=== PATIENT | female | born 1990 | race Caucasian/White ===

== ENCOUNTER 2016-12-18 13:15 | Emergency (ER) | payer MEDICAID ==
[~2016-12-18] VITALS: Ht 154.9 cm; Wt 68.0 kg
[2016-12-18] MEDS ORDERED: Morphine Sulfate 2mg/ml Inj IVP ONE (13:45)
[2016-12-18] MEDS ORDERED: Famotidine 20 MG/ 2ML VIAL IVP ONE (13:45)
[2016-12-18 14:08] LABS: BASOPHILS % (AUTO) 0.6 % (0.0-2.0); EOSINOPHILS % (AUTO) 1.3 % (0.0-3.0); LYMPHOCYTES % (AUTO) 21.7 % (20.0-45.0); MEAN CORPUSCULAR HEMOGLOBIN 29.9 PG (27.0-31.0); MEAN CORPUSCULAR HGB CONC 34.3 G/DL (32.0-36.0); MEAN CORPUSCULAR VOLUME 87 FL (80-99); MEAN PLATELET VOLUME 10.6 FL (6.5-10.1); MONOCYTES % (AUTO) 4.8 % (1.0-10.0); NEUTROPHILS % (AUTO) 71.6 % (45.0-75.0); PLATELET COUNT 217 K/UL (150-450); RED BLOOD COUNT 4.61 M/UL (4.20-5.40); RED CELL DISTRIBUTION WIDTH 11.2 % (11.6-14.8); WHITE BLOOD COUNT 12.5 K/UL (4.8-10.8)
[2016-12-18 14:28] LABS: ALANINE AMINOTRANSFERASE 26 U/L (3-33); ALBUMIN/GLOBULIN RATIO 1.2 (1.0-2.7); ANION GAP 14 (5-15); ASPARTATE AMINO TRANSFERASE 21 U/L (5-40); CALCIUM 9.2 mg/dL (8.6-10.2); CARBON DIOXIDE 23 mEQ/L (20-30); CHLORIDE 101 mEQ/L (98-107); CREATININE 0.7 mg/dL (0.5-0.9); GLOMERULAR FILTRATION RATE > 60 mL/min (>60); HEMOLYSIS 5; LIPASE 26 U/L (< 60); POTASSIUM 4.2 mEQ/L (3.4-4.9); SODIUM 138 mEQ/L (135-145); TOTAL PROTEIN 8.3 g/dL (6.6-8.7)
[2016-12-18 14:34] LABS: APPEARANCE,URINE CLEAR; KETONES,URINE NEGATIVE (NEGATIVE); LEUKOCYTE ESTERASE ,URINE 3+ (NEGATIVE); NITRITE,URINE NEGATIVE (NEGATIVE); PH,URINE 6 (4.5-8.0); PROTEIN,URINE 2+ (NEGATIVE); UROBILINOGEN,URINE 4 MG/DL (0.0-1.0)
[2016-12-18] MEDS ORDERED: Dicyclomine HCl 10mg/5ml oral soln ORAL ONE (14:45)
[2016-12-18] MEDS ORDERED: Mylanta II UD 30ml ORAL ONE (14:45)
[2016-12-18] MEDS ORDERED: Lidocaine 2% Visc 15ml soln ORAL ONE (14:45)
[2016-12-18 14:47] LABS: BACTERIA,URINE FEW /HPF; ICTOTEST NEGATIVE; SQUAMOUS EPITHELIAL CELL,UR FEW /LPF (NONE/OCC)
[2016-12-18 16:19] VITALS: BP 113/79
--- NOTE | 2016-12-18 16:33 | Diagnostic Imaging Report ---
Clinical Indication: Upper abdominal pain x2 days Technique: No oral contrast utilized, per emergency room physician request IV administration nonionic contrast. Venous phase spiral acquisition obtained through the abdomen and pelvis. Multiplanar reconstructions were generated. Total dose length product 918 mGycm. CTDIvol(s) 18 mGy. Dose reduction achieved using automated exposure control Comparison: None Findings: Lack of enteric contrast limits assessment of the GI tract. The appendix is normal. There is no evidence of diverticulosis or diverticulitis. The distal esophagus, stomach, duodenum are unremarkable. Proximal jejunal loops are mildly prominent but not frankly dilated. More distal jejunal loops are mildly dilated and fluid-filled. These demonstrate a gradual transition to normal caliber in the lower midabdomen. There is equivocal minimal infiltration of the perienteric fat. Ileal loops are nondilated. There is diastases of the rectus abdominis tendon. No free or loculated intraperitoneal air or fluid. The gallbladder is nondistended. The liver, bile ducts, pancreas, spleen, adrenals, kidneys, ureters are unremarkable. The uterus contains an intrauterine device. No adnexal mass demonstrated. No pelvic mass or adenopathy. The bladder is somewhat distended. There is minimal dependent pulmonary atelectatic changes, lung bases otherwise clear. The bones are unremarkable. Impression: Limit assessment of the GI tract, due to lack of oral contrast administration Fluid-filled mildly dilated mid to distal jejunum, demonstrating gradual transition to normal caliber or collapsed ileum. Suspect findings are on the basis of mild enteritis changes or ileus. However, possibility of partial small bowel obstruction cannot completely ruled out. No other acute abnormality Intrauterine device Diastasis of the rectus abdominis tendon without ray herniation The CT scanner at [facility] is accredited by the [employer] and the scans are performed using protocols designed to limit radiation exposure to as low as reasonably achievable to attain images of sufficient resolution adequate for diagnostic evaluation.
[2016-12-18] MEDS ORDERED: ACETAMINOPHEN-1 EAC1 ORAL (16:45)
[2016-12-18] MEDS ORDERED: Morphine Sulfate 4mg/ml Inj IVP ONE (16:45)
[2016-12-18] MEDS ORDERED: NITROFURANTOIN100 M2 ORAL (16:45)
[2016-12-18 17:17] VITALS: BP 101/54
--- NOTE | 2016-12-18 21:53 | Emergency Room Report ---
History of Present Illness General Chief Complaint: Abdominal Pain Source: Patient Present Illness [facility] The patient is a 26-year-old female presenting for abdominal pain. Pain began 2 days prior. It is described as an 8/10 sharp sensation to the mid upper abdomen. She admits to occasional radiating pain to the mid chest described as a burning. No known provoking or relieving factors. She admits to nausea. She also admits to recent diarrhea. She denies other symptoms including vomiting , fever, chills, rash Allergies: Coded Allergies: No Known Allergies (Unverified , 12/18/16) Patient History Past Medical History: see triage record Pertinent Family History: none Last Menstrual Period: December 01, 2016 Now: No Reviewed Nursing Documentation: PMH: Agreed, PSxH: Agreed Review of Systems All Other Systems: negative except mentioned in HPI Physical Exam Vital Signs Date Time Temp Pulse Resp B/P Pulse Ox O2 Delivery O2 Flow Rate FiO2 12/18/16 13:26 98.2 84 12 119/79 96 Room Air Sp02 EP Interpretation: reviewed, normal General Appearance: no apparent distress, alert, GCS 15, non-toxic Head: normocephalic, atraumatic Eyes: bilateral eye PERRL, bilateral eye normal inspection ENT: hearing grossly normal, normal pharynx, no angioedema, normal voice Neck: full range of motion, supple/symm/no masses Respiratory: chest non-tender, lungs clear, normal breath sounds, speaking full sentences Gastrointestinal: normal bowel sounds, soft, no mass, no guarding, tenderness - epigastric Rectal: deferred Genitourinary: normal inspection, no CVA tenderness Musculoskeletal: back normal, gait/station normal, normal range of motion, non- tender Neurologic: alert, oriented x3, responsive, motor strength/tone normal, sensory intact, speech normal Psychiatric: judgement/insight normal, memory normal, mood/affect normal, no suicidal/homicidal ideation Skin: normal color, no rash, warm/dry, well hydrated Medical Decision Making PA Attestation Dr. Suresh is my supervising physician. Patient management was discussed with my supervising physician Diagnostic Impression: Primary Impression: Urinary tract infection Additional Impression: Abdominal pain Qualified Codes: R10.9 - Unspecified abdominal pain ER Course The patient is a 26-year-old female presenting for abdominal pain Differential diagnoses considered include but not limited to gastritis, pancreatitis, appendicitis, gastroenteritis, , UTI Physical exam: Unremarkable except for tenderness to palpation of the epigastric region Lab work: Significant only for mild leukocytosis and white blood cells in urine The patient is given IV Pepcid and 2 mg of morphine. Pain has persisted. She is then given a GI cocktail with no relief of symptoms. Abdominal pain has continued despite medications given. CT scan is ordered CT scan of abdomen and pelvis shows signs consistent with enteritis. Otherwise unremarkable The patient is discharged home with the ER precautions. She is to follow up with primary doctor. She is given antibiotics for presumed urinary tract infection. Laboratory Tests Test 12/18/16 13:35 White Blood Count 12.5 K/UL (4.8-10.8) H Red Blood Count 4.61 M/UL (4.20-5.40) Hemoglobin 13.8 G/DL (12.0-16.0) Hematocrit 40.3 % (37.0-47.0) Mean Corpuscular Volume 87 FL (80-99) Mean Corpuscular Hemoglobin 29.9 PG (27.0-31.0) Mean Corpuscular Hemoglobin Concent 34.3 G/DL (32.0-36.0) Red Cell Distribution Width 11.2 % (11.6-14.8) L Platelet Count 217 K/UL (150-450) Mean Platelet Volume 10.6 FL (6.5-10.1) H Neutrophils (%) (Auto) 71.6 % (45.0-75.0) Lymphocytes (%) (Auto) 21.7 % (20.0-45.0) Monocytes (%) (Auto) 4.8 % (1.0-10.0) Eosinophils (%) (Auto) 1.3 % (0.0-3.0) Basophils (%) (Auto) 0.6 % (0.0-2.0) Urine Color Ele Urine Appearance Clear Urine pH 6 (4.5-8.0) Urine Specific [place] 1.015 (1.005-1.035) Urine Protein 2+ (NEGATIVE) H Urine Glucose (UA) Negative (NEGATIVE) Urine Ketones Negative (NEGATIVE) Urine Occult Blood 3+ (NEGATIVE) H Urine Nitrite Negative (NEGATIVE) Urine Bilirubin Negative (NEGATIVE) Urine Ictotest Negative Urine Urobilinogen 4 MG/DL (0.0-1.0) H Urine Leukocyte Esterase 3+ (NEGATIVE) H Urine RBC 2-4 /HPF (0 - 2) H Urine WBC 5-10 /HPF (0 - 2) H Urine Squamous Epithelial Cells Few /LPF (NONE/OCC) Urine Bacteria Few /HPF (NONE) Urine HCG, Qualitative Negative Sodium Level 138 mEQ/L (135-145) Potassium Level 4.2 mEQ/L (3.4-4.9) Chloride Level 101 mEQ/L (98-107) Carbon Dioxide Level 23 mEQ/L (20-30) Anion Gap 14 (5-15) Blood Urea Nitrogen 9 mg/dL (7-23) Creatinine 0.7 mg/dL (0.5-0.9) Estimate Glomerular Filtration Rate > 60 mL/min (>60) Glucose Level 103 mg/dL (74-106) Calcium Level 9.2 mg/dL (8.6-10.2) Total Bilirubin 0.8 mg/dL (0.0-1.2) Aspartate Amino Transferase (AST) 21 U/L (5-40) Alanine Aminotransferase (ALT) 26 U/L (3-33) Alkaline Phosphatase 102 U/L (35-104) Total Protein 8.3 g/dL (6.6-8.7) Albumin 4.6 g/dL (3.5-5.2) Globulin 3.7 g/dL Albumin/Globulin Ratio 1.2 (1.0-2.7) Lipase 26 U/L (< 60) Lab Results Impression CBC: Mildly elevated white blood cell count. Otherwise unremarkable CMP unremarkable Urinalysis shows white blood cells with few bacteria Neg CT/MRI/US Diagnostic Results CT/MRI/US Diagnostic Results : Imaging Test Ordered: CT abd/pelvis Impression Signs consistent with enteritis Last Vital Signs Date Time Temp Pulse Resp B/P Pulse Ox O2 Delivery O2 Flow Rate FiO2 12/18/16 17:17 84 20 101/54 99 Room Air 12/18/16 16:19 98.2 Status: improved Disposition: HOME, SELF-CARE Condition: Improved Scripts Acetaminophen With Codeine (T#3) (TYLENOL #3 TAB*) Y Tab 1 TAB ORAL Q6HR Y for For Pain, #10 TAB Prov: TERZIANKAYLENE P.A. 12/18/16 Nitrofurantoin Monohyd/M-Cryst* (MACROBID 100 MG*) 100 Mg Capsule 100 MG ORAL EVERY 12 HOURS, #14 CAP Prov: KAYLENE EDWARDS 12/18/16 Patient Instructions: Abdominal Pain, Adult Additional Instructions: I discussed my findings with the patient. All questions and concerns have been answered. Treatment and medication compliance have been addressed. I advised the patient that they need to follow up with PMD in 3-5 days. Return to ED if symptoms worsen, new symptoms arise, or if needed for any reason. Patient verbalized understanding of discharge instructions. KAYLENE EDWARDS Dec 18, 2016 21:53
== END 2016-12-18 17:17 | disposition home or self-care (01) ==
LOC: EMR 14:25
DX: N39.0 Urinary tract infection, site not specified (principal); R10.9 Unspecified abdominal pain; R11.0 Nausea; R19.7 Diarrhea, unspecified; D72.829 Elevated white blood cell count, unspecified; Z97.5 Presence of (intrauterine) contraceptive device
CPT/HCPCS: 36415; 74177; 80053; 81003; 81025; 83690; 85025; 96374; 96375; 99284; J2270; J2405; Q9967; S0028

== ENCOUNTER 2017-02-06 17:15 | Emergency (ER) | payer MEDICAID ==
[~2017-02-06] VITALS: Ht 154.9 cm; Wt 68.0 kg
[~2017-02-06 17:15] MED LIST: ACETAMINOPHEN-1 EAC1 ORAL; NITROFURANTOIN100 M2 ORAL
[2017-02-06 18:02] LABS: APPEARANCE,URINE CLEAR; KETONES,URINE NEGATIVE (NEGATIVE); LEUKOCYTE ESTERASE ,URINE 2+ (NEGATIVE); NITRITE,URINE NEGATIVE (NEGATIVE); PH,URINE 8 (4.5-8.0); PROTEIN,URINE NEGATIVE (NEGATIVE); UROBILINOGEN,URINE 8 MG/DL (0.0-1.0)
[2017-02-06 18:05] LABS: BACTERIA,URINE FEW /HPF; RBC,URINE 0-2 /HPF (0 - 2); SQUAMOUS EPITHELIAL CELL,UR FEW /LPF (NONE/OCC)
[2017-02-06] MEDS ORDERED: IBUPROFEN600 MG ORAL (19:16)
[2017-02-06] MEDS ORDERED: CEPHALEXIN500 MG ORAL (19:16)
[2017-02-06 19:25] VITALS: BP 126/77
[2017-02-06 19:32] VITALS: BP 123/75
--- NOTE | 2017-02-06 21:33 | Emergency Room Report ---
History of Present Illness General Chief Complaint: Female Urogenital Problems Source: Patient Present Illness [facility] The patient is a 26-year-old female presenting for vaginal discharge and pelvic pain. She states that she developed a white discharge one week prior as well as pain which occurs during intercourse. Pain is an 8/10 dull ache felt in the mid lower abdomen during intercourse. She also admits to a foul order after sex but denies that this is a fishy odor. She states that she has not had any other sexual partners for over 10 years. She does admit to increased urinary frequency but denies other symptoms including dysuria, hematuria, nausea, vomiting, fever, chills, back pain, rash. Patient states that she has an IUD placed Allergies: Coded Allergies: No Known Allergies (Unverified , 12/18/16) Patient History Past Medical History: see triage record Pertinent Family History: none Last Menstrual Period: 01/2017 Reviewed Nursing Documentation: PMH: Agreed, PSxH: Agreed Nursing Documentation-PMH Past Medical History: No History, Except For Review of Systems All Other Systems: negative except mentioned in HPI Physical Exam Vital Signs Date Time Temp Pulse Resp B/P (MAP) Pulse Ox O2 Delivery O2 Flow Rate FiO2 02/06/17 17:31 98.1 65 16 123/75 99 Room Air Sp02 EP Interpretation: reviewed, normal General Appearance: no apparent distress, alert, GCS 15, non-toxic Head: normocephalic, atraumatic Eyes: bilateral eye normal inspection, bilateral eye PERRL ENT: hearing grossly normal, normal pharynx, no angioedema, normal voice Neck: full range of motion, supple/symm/no masses Gastrointestinal: normal bowel sounds, soft, non-distended, no guarding, no rebound, tenderness - suprapubic Rectal: deferred Genitourinary: ext genitalia/vag normal, os closed - strings visible, other - + CMT with friable cervix Musculoskeletal: back normal, gait/station normal, normal range of motion, non- tender Neurologic: alert, oriented x3, responsive, motor strength/tone normal, sensory intact, speech normal Skin: normal color, no rash, warm/dry, well hydrated Medical Decision Making PA Attestation Dr. Schmitz is my supervising physician. Patient management was discussed with my supervising physician Diagnostic Impression: Primary Impression: Pelvic pain Additional Impression: Urinary tract infection Qualified Codes: N39.0 - Urinary tract infection, site not specified ER Course The patient is a 26-year-old female presenting for vaginal discharge and pelvic pain. Differential diagnoses considered but not limited to: Urinary tract infection, BV, STD, PID, among others PE: NAD. Afebrile. Abd is soft. TTP over suprapubic region. Pelvic exam done with tech Lucretia in room. There is a slight white DC. Os is closed. Cervix is significantly tender with light palpation and friable. The patient was advised that with these findings, I am concerned for the patient having an STD which is causing PID. She has become angry and aggressive and declines medication including azithromycin and Rocephin. She was told that this is the standard of care but is refusing. The patient is discharged home with prescription for Keflex but was told that this will likely not be enough to treat the infection. She needs to FU with OB/ [facility] and PMD SHIVA. She was told to return to the emergency department if she changes her mind for treatment or for any reason including increased pain Laboratory Tests Test 02/06/17 17:43 Urine Color Pale yellow Urine Appearance Clear Urine pH 8 (4.5-8.0) Urine Specific [place] 1.010 (1.005-1.035) Urine Protein Negative (NEGATIVE) Urine Glucose (UA) Negative (NEGATIVE) Urine Ketones Negative (NEGATIVE) Urine Occult Blood 1+ (NEGATIVE) H Urine Nitrite Negative (NEGATIVE) Urine Bilirubin Negative (NEGATIVE) Urine Urobilinogen 8 MG/DL (0.0-1.0) H Urine Leukocyte Esterase 2+ (NEGATIVE) H Urine RBC 0-2 /HPF (0 - 2) Urine WBC 2-4 /HPF (0 - 2) Urine Squamous Epithelial Cells Few /LPF (NONE/OCC) Urine Bacteria Few /HPF (NONE) Urine HCG, Qualitative Negative Lab Results Impression 2+ LE with few bacteria Last Vital Signs Date Time Temp Pulse Resp B/P (MAP) Pulse Ox O2 Delivery O2 Flow Rate FiO2 02/06/17 19:32 98.1 16 123/75 99 Room Air 02/06/17 19:25 88 Status: improved Disposition: HOME, SELF-CARE Condition: Improved Scripts Cephalexin* (KEFLEX*) 500 Mg Capsule 500 MG ORAL EVERY 12 HOURS, #14 CAP 0 Refills Prov: KAYLENE EDWARDS P.A. 02/06/17 Ibuprofen* (MOTRIN*) 600 Mg Tablet 600 MG ORAL Q8H Y for For Pain, #30 TAB 0 Refills Prov: KAYLENE EDWARDS 02/06/17 Referrals: LEOPOLDO STARK,REFERRING (PCP) Patient Instructions: Pelvic Pain, Female, Urinary Tract Infection Additional Instructions: I discussed my findings with the patient. All questions and concerns have been answered. Treatment and medication compliance have been addressed. I advised the patient that they need to follow up with primary doctor and [facility] as soon as possible. Return to ED if symptoms worsen, new symptoms arise, or if needed for any reason. Patient verbalized understanding of discharge instructions. KAYLENE EDWARDS Feb 06, 2017 21:33
== END 2017-02-06 19:32 | disposition home or self-care (01) ==
LOC: EMR 17:58
DX: R10.2 Pelvic and perineal pain (principal); N39.0 Urinary tract infection, site not specified; N89.8 Other specified noninflammatory disorders of vagina; N94.10 Unspecified dyspareunia; R35.0 Frequency of micturition
CPT/HCPCS: 81003; 81025; 99284

== ENCOUNTER 2017-06-11 16:21 | Emergency (ER) | payer MEDICAID ==
[~2017-06-11] VITALS: Ht 154.9 cm; Wt 68.0 kg
[~2017-06-11 16:21] MED LIST changes: +CEPHALEXIN500 MG ORAL; +IBUPROFEN600 MG ORAL
--- NOTE | 2017-06-11 17:08 | Emergency Room Report ---
History of Present Illness General Chief Complaint: Pain Present Illness HPI Patient is a 18-year-old female presents today with complaints of pelvic pain that began 2 days ago. She states it is evident in severity and she describes the pain as cramping. No medications and taking for the pain. She states she had spotting in yesterday, which has since resolved. she denies any dysuria but notes urinary frequency. She states that she took a home test which was negative. She has no significant medical problems and denies tobacco , alcohol or drug use. Allergies: Coded Allergies: No Known Allergies (Unverified , 12/18/16) Patient History Reviewed Nursing Documentation: PMH: Agreed, PSxH: Agreed Review of Systems Gastrointestinal: Reports: abdominal pain All Other Systems: negative except mentioned in HPI Physical Exam Vital Signs Date Time Temp Pulse Resp B/P (MAP) Pulse Ox O2 Delivery O2 Flow Rate FiO2 06/11/17 16:31 98.1 75 20 121/77 99 Room Air Sp02 EP Interpretation: reviewed, normal General Appearance: no apparent distress, alert, GCS 15, non-toxic Head: normocephalic, atraumatic Eyes: bilateral eye normal inspection, bilateral eye PERRL ENT: hearing grossly normal, normal pharynx, no angioedema, normal voice Neck: full range of motion, supple/symm/no masses Respiratory: chest non-tender, lungs clear, normal breath sounds, speaking full sentences Cardiovascular #1: regular rate, rhythm, no edema Cardiovascular #2: 2+ carotid (R), 2+ carotid (L), 2+ radial (R), 2+ radial (L) , 2+ dorsalis pedis (R), 2+ dorsalis pedis (L) Gastrointestinal: normal bowel sounds, non tender, soft, non-distended, no guarding, no rebound Rectal: deferred Genitourinary: normal inspection, no CVA tenderness Musculoskeletal: back normal, gait/station normal, normal range of motion, non- tender, calf tenderness Neurologic: alert, oriented x3, responsive, motor strength/tone normal, sensory intact, speech normal Psychiatric: judgement/insight normal, memory normal, mood/affect normal, no suicidal/homicidal ideation Reflexes: 3+ bicep (R), 3+ bicep (L), 3+ tricep (R), 3+ tricep (L), 3+ knee (R) , 3+ knee (L) Skin: normal color, no rash, warm/dry, well hydrated Lymphatic: no adenopathy Medical Decision Making PA Attestation Supervising physician is Dr. Wagner Diagnostic Impression: Primary Impression: Ovarian cyst Additional Impression: Pelvic pain ER Course Patient sent have ovarian cysts. There no evidence of torsion and there. Labs are within normal limits, no leukocytosis. Reevaluation at 2041, he states is improving the medication. Abdomen is soft and nontender. Patient is discharged home with tramadol and instructed to follow up with PCP for referral to OB. The patient understands and is agreeable to plan. Discussed case with Dr. Schmitz who agreed with disposition and plan. Last Vital Signs Date Time Temp Pulse Resp B/P (MAP) Pulse Ox O2 Delivery O2 Flow Rate FiO2 06/11/17 16:31 98.1 75 20 121/77 99 Room Air Status: improved Disposition: HOME, SELF-CARE Condition: Stable Scripts Tramadol Hcl* (ULTRAM*) 50 Mg Tablet 50 MG ORAL Q6H Y for For Pain, #30 TAB 0 Refills Prov: Ele Ann 06/11/17 Ele Ann Jun 11, 2017 17:08
[2017-06-11 17:30] LABS: APPEARANCE,URINE CLEAR; BILIRUBIN, URINE NEGATIVE (NEGATIVE); COLOR,URINE PALE YELLOW; GLUCOSE, URINE (UA) NEGATIVE (NEGATIVE); KETONES,URINE NEGATIVE (NEGATIVE); LEUKOCYTE ESTERASE ,URINE 1+ (NEGATIVE); NITRITE,URINE NEGATIVE (NEGATIVE); PH,URINE 6.5 (4.5-8.0); PROTEIN,URINE 2+ (NEGATIVE); UROBILINOGEN,URINE NORMAL MG/DL (0.0-1.0)
[2017-06-11 17:32] LABS: BASOPHILS % (AUTO) 0.6 % (0.0-2.0); EOSINOPHILS % (AUTO) 2.2 % (0.0-3.0); HEMATOCRIT 37.9 % (37.0-47.0); HEMOGLOBIN 13.2 G/DL (12.0-16.0); LYMPHOCYTES % (AUTO) 35.2 % (20.0-45.0); MEAN CORPUSCULAR VOLUME 87 FL (80-99); PLATELET COUNT 242 K/UL (150-450); RED BLOOD COUNT 4.38 M/UL (4.20-5.40); RED CELL DISTRIBUTION WIDTH 11.7 % (11.6-14.8); WHITE BLOOD COUNT 7.7 K/UL (4.8-10.8)
[2017-06-11 17:39] LABS: ANION GAP 11 mmol/L (5-15); BLOOD UREA NITROGEN 9 mg/dL (7-18); CALCIUM 9.1 MG/DL (8.5-10.1); CARBON DIOXIDE 25 MMOL/L (21-32); CHLORIDE 102 MMOL/L (98-107); CREATININE 0.7 MG/DL (0.55-1.30); POTASSIUM 3.9 MMOL/L (3.5-5.1); SODIUM 138 MMOL/L (136-145)
[2017-06-11 18:05] VITALS: BP 134/75
[2017-06-11] MEDS ORDERED: Acetaminophen 500mg (ES) tab ORAL ONE (20:30)
[2017-06-11] MEDS ORDERED: Ketorolac 30mg Inj IM ONE (20:30)
[2017-06-11] MEDS ORDERED: TRAMADOL HCL50 MG ORAL (20:43)
[2017-06-11 20:50] VITALS: BP 122/77
[2017-06-11 22:04] VITALS: BP 122/77
--- NOTE | 2017-06-12 09:36 | Diagnostic Imaging Report ---
Indication: Pelvic pain and vaginal bleeding, negative urine test Technique: Transabdominal and transvaginal images Comparison: none Findings: Uterus measures 8.4 cm length by 3.4 cm AP endometrium measures 6 cm cystic. No myometrial abnormality. Left ovary measures 2.5 cm length. Right ovary measures 3 cm in length. No adnexal mass demonstrated. No free cul-de-sac fluid. There is a cervical nabothian cyst Impression: Essentially unremarkable exam Incidental finding of cervical nabothian cyst This agrees with the preliminary interpretation provided [facility].
== END 2017-06-11 20:54 | disposition home or self-care (01) ==
LOC: EMR 18:33
DX: N83.209 Unspecified ovarian cyst, unspecified side (principal); R10.2 Pelvic and perineal pain; N88.8 Other specified noninflammatory disorders of cervix uteri
CPT/HCPCS: 36415; 76830; 76856; 80048; 81001; 81025; 85025; 96360; 96372; 99284; J1885; 96361

== ENCOUNTER 2017-06-17 14:03 | Emergency (ER) | payer MEDICAID, OTHER ==
[~2017-06-17] VITALS: Ht 160 cm; Wt 59.0 kg
[~2017-06-17 14:03] MED LIST changes: +TRAMADOL HCL50 MG ORAL
[2017-06-17 14:30] VITALS: BP 126/83
[2017-06-17] MEDS ORDERED: LORazepam 1mg tab ORAL ONE (14:30)
[2017-06-17 15:05] LABS: BASOPHILS % (AUTO) 0.6 % (0.0-2.0); EOSINOPHILS % (AUTO) 3.4 % (0.0-3.0); HEMATOCRIT 38.2 % (37.0-47.0); LYMPHOCYTES % (AUTO) 30.2 % (20.0-45.0); MEAN CORPUSCULAR VOLUME 88 FL (80-99); MONOCYTES % (AUTO) 3.7 % (1.0-10.0); PLATELET COUNT 248 K/UL (150-450); RED BLOOD COUNT 4.34 M/UL (4.20-5.40); RED CELL DISTRIBUTION WIDTH 11.6 % (11.6-14.8); WHITE BLOOD COUNT 8.6 K/UL (4.8-10.8)
[2017-06-17 15:18] LABS: INR 0.9 (0.9-1.1)
[2017-06-17 15:22] LABS: ANION GAP 11 mmol/L (5-15); BLOOD UREA NITROGEN 9 mg/dL (7-18); CARBON DIOXIDE 26 MMOL/L (21-32); CHLORIDE 101 MMOL/L (98-107); CREATININE 0.7 MG/DL (0.55-1.30); POTASSIUM 3.7 MMOL/L (3.5-5.1); SODIUM 138 MMOL/L (136-145)
[2017-06-17 15:27] LABS: ALANINE AMINOTRANSFERASE 36 U/L (12-78); ALBUMIN 4.2 G/DL (3.4-5.0); ALBUMIN/GLOBULIN RATIO 1.1 (1.0-2.7); ALKALINE PHOSPHATASE 115 U/L (46-116); ASPARTATE AMINO TRANSFERASE 18 U/L (15-37); BILIRUBIN,TOTAL 0.7 MG/DL (0.2-1.0)
--- NOTE | 2017-06-17 16:18 | Diagnostic Imaging Report ---
ndication: Chest pain Technique: IV administration nonionic contrast. Spiral acquisitions obtained from the lung bases to the lung apices. Multiplanar and 3-D reconstructions were generated. Total dose length product 863.53 mGycm. CTDIvol(s) 30.37 mGy. Dose reduction achieved using automated exposure control Comparison: none Findings: No intraluminal filling defects or other findings to suggest acute pulmonary embolus are evident. There is adequate opacification of the pulmonary arteries. No thoracic aortic aneurysm or dissection. Normal caliber pulmonary arteries. No right ventricular dilatation. Normal heart size. There is a calcified granuloma at the right lung apex. The lungs and pleural spaces are otherwise clear. No mediastinal or hilar mass or adenopathy. Normal heart size. No pericardial effusion. The included thyroid is unremarkable. No axillary or chest wall mass or adenopathy. Included upper abdominal viscera are unremarkable. The bones are unremarkable Impression: Negative for acute pulmonary embolus or other acute thoracic pathology Old calcified granuloma in the right lung apex The CT scanner at [facility] is accredited by the [employer] and the scans are performed using protocols designed to limit radiation exposure to as low as reasonably achievable to attain images of sufficient resolution adequate for diagnostic evaluation.
--- NOTE | 2017-06-17 16:48 | Diagnostic Imaging Report ---
Indication: Shortness of breath and chest pain Technique: 2 views of the chest Comparison: none. Findings: Lungs and pleural spaces are clear. Heart size is normal. Bones are unremarkable.. Impression: No acute process
--- NOTE | 2017-06-17 16:57 | Emergency Room Report ---
History of Present Illness General Chief Complaint: Chest Pain Present Illness HPI 26 YO Female presents to the ED c/o Intermittent chest pain since last week described as tightness in nature, with associated episodes of dizziness and feeling as though she is going to faint. Patient states she was evaluated for her symptoms last week and was diagnosed with chest wall pain. Patient reports history of blood clots after . Denies personal or familial cardiac history. Patient reports that when she was diagnosed of blood clot in 2013 she had to get herself Lovenox injections times one month. Patient denies pain at this time however she does report feeling short of breath and as though her rib cage is very tight. Patient denies recent URI symptoms, fevers, chills, nausea or vomiting. Denies history of anxiety. She reports her most recent episode was while at work and she got worried and decided to be evaluated at the ER. Denies Palpitations, LOC, AMS, Changes in Vision, Sensation, paresthesias, or a sudden severe headache. Allergies: Coded Allergies: No Known Allergies (Unverified , 12/18/16) Patient History Past Medical History: see triage record Past Surgical History: none Pertinent Family History: none Now: No Reviewed Nursing Documentation: PMH: Agreed, PSxH: Agreed Review of Systems All Other Systems: negative except mentioned in HPI Physical Exam Vital Signs Date Time Temp Pulse Resp B/P (MAP) Pulse Ox O2 Delivery O2 Flow Rate FiO2 06/17/17 14:06 97.3 84 20 130/85 99 Room Air Sp02 EP Interpretation: reviewed, normal General Appearance: no apparent distress, alert, GCS 15, non-toxic Head: normocephalic, atraumatic ENT: hearing grossly normal, normal voice Neck: full range of motion Respiratory: chest non-tender, lungs clear, normal breath sounds, speaking full sentences Cardiovascular #1: regular rate, rhythm Gastrointestinal: non tender, soft Musculoskeletal: back normal, gait/station normal, normal range of motion, non- tender Neurologic: alert, oriented x3, responsive, motor strength/tone normal, sensory intact, normal gait, speech normal, grossly normal Psychiatric: judgement/insight normal Skin: normal color, no rash, warm/dry, well hydrated Medical Decision Making PA Attestation Dr. Porras is my supervising Physician whom patient management has been discussed with. Diagnostic Impression: Primary Impression: Chest wall pain ER Course 26 YO Female presents to the ED c/o Intermittent chest pain since last week described as tightness in nature, with associated episodes of dizziness and feeling as though she is going to faint. Patient states she was evaluated for her symptoms last week and was diagnosed with chest wall pain. Patient reports history of blood clots after . Denies personal or familial cardiac history. Patient reports that when she was diagnosed of blood clot in 2013 she had to get herself Lovenox injections times one month. Patient denies pain at this time however she does report feeling short of breath and as though her rib cage is very tight. Patient denies recent URI symptoms, fevers, chills, nausea or vomiting. Denies history of anxiety. She reports her most recent episode was while at work and she got worried and decided to be evaluated at the ER. Denies Palpitations, LOC, AMS, Changes in Vision, Sensation, paresthesias, or a sudden severe headache. Ddx considered but are not limited to DE, pneumonia, contusion, costochondritis , PE, ACS, Shoulder strain, Chest wall contusion. aortic dissection. Vital signs: are WNL, pt. is afebrile H&PE are most consistent with possible anxiety reaction however will consider PE due to hx of DVT/PE in the past. ORDERS: - EKG: NSR -CBC: Unremarkable -CMP: unremarkable CXR- 2 views: WNL -CTA CHEST: unremarkable no PE. ED INTERVENTIONS: -Ativan 1 mg PO -pt. symptoms have resolved upon re-examination. d/w pt. conservative treatment, and to follow up with a primary care provider. pt given a list of primary care clinics for follow up. d/w pt. to return to the ED with worsening or new symptoms. DISCHARGE: At this time pt. is stable for d/c to home. Will provide printed patient care instructions, and any necessary prescriptions. Care plan and follow up instructions have been discussed with the patient prior to discharge. Labs Test 06/17/17 14:50 White Blood Count 8.6 K/UL (4.8-10.8) Red Blood Count 4.34 M/UL (4.20-5.40) Hemoglobin 13.0 G/DL (12.0-16.0) Hematocrit 38.2 % (37.0-47.0) Mean Corpuscular Volume 88 FL (80-99) Mean Corpuscular Hemoglobin 30.0 PG (27.0-31.0) Mean Corpuscular Hemoglobin Concent 34.1 G/DL (32.0-36.0) Red Cell Distribution Width 11.6 % (11.6-14.8) Platelet Count 248 K/UL (150-450) Mean Platelet Volume 9.2 FL (6.5-10.1) Neutrophils (%) (Auto) 62.0 % (45.0-75.0) Lymphocytes (%) (Auto) 30.2 % (20.0-45.0) Monocytes (%) (Auto) 3.7 % (1.0-10.0) Eosinophils (%) (Auto) 3.4 % (0.0-3.0) Basophils (%) (Auto) 0.6 % (0.0-2.0) Prothrombin Time 9.7 SEC (9.30-11.50) Prothromb Time International Ratio 0.9 (0.9-1.1) Activated Partial Thromboplast Time 27 SEC (23-33) Urine HCG, Qualitative Negative Sodium Level 138 MMOL/L (136-145) Potassium Level 3.7 MMOL/L (3.5-5.1) Chloride Level 101 MMOL/L (98-107) Carbon Dioxide Level 26 MMOL/L (21-32) Anion Gap 11 mmol/L (5-15) Blood Urea Nitrogen 9 mg/dL (7-18) Creatinine 0.7 MG/DL (0.55-1.30) Estimat Glomerular Filtration Rate > 60 mL/min (>60) Glucose Level 119 MG/DL (74-106) Calcium Level 9.0 MG/DL (8.5-10.1) Total Bilirubin 0.7 MG/DL (0.2-1.0) Aspartate Amino Transf (AST/SGOT) 18 U/L (15-37) Alanine Aminotransferase (ALT/SGPT) 36 U/L (12-78) Alkaline Phosphatase 115 U/L (46-116) Total Protein 8.1 G/DL (6.4-8.2) Albumin 4.2 G/DL (3.4-5.0) Globulin 3.9 g/dL Albumin/Globulin Ratio 1.1 (1.0-2.7) EKG Diagnostic Results EP Interpretation: Dr. Porras Rate: normal - 69 BPM Rhythm: NSR ST Segments: no acute changes ASA given to the pt in ED: No PA Scribe Text Nakia Cox PA-C Chest X-Ray Diagnostic Results Chest X-Ray Diagnostic Results : Chest X-Ray Ordered: Yes # of Views/Limited/Complete: 1 View Indication: Chest Pain EP Interpretation: Yes PA Xray: Interpretation reviewed, by supervising MD, and agrees with findings. Interpretation: no consolidation, no effusion, no pneumothorax Impression: No acute disease Electronically Signed by: Nakia Cox PA-C Last Vital Signs Date Time Temp Pulse Resp B/P (MAP) Pulse Ox O2 Delivery O2 Flow Rate FiO2 06/17/17 14:30 80 18 Room Air 06/17/17 14:30 126/83 99 06/17/17 14:06 97.3 Disposition: HOME, SELF-CARE Condition: Stable Scripts Acetaminophen* (TYLENOL EXTRA STRENGTH*) 500 Mg Tablet 500 MG ORAL Q6H Y for Mild Pain/Temp > 100.5, #20 TAB 0 Refills Prov: Nakia Cox 06/17/17 Lorazepam* (ATIVAN*) 1 Mg Tablet 0.5 MG ORAL THREE TIMES A DAY, #6 TAB Prov: Nakia Cox 06/17/17 Referrals: [facility]ERR[facility] (PCP) Patient Instructions: Nonspecific Chest Pain Additional Instructions: Take medications as directed. Follow up with a Primary Care Provider in 3-5 days, even if your symptoms have resolved. --Please review list of primary care clinics, if you do not already have a primary care provider -- Please review [facility] urgent care information for psych follow up. Return sooner to ED if new symptoms occur, or current symptoms become worse. Do not drink alcohol, drive, or operate heavy machinery while taking Ativan as this may cause drowsiness. - Please note that this Emergency Department Report was dictated using [employer] edger technology software, occasionally this can lead to erroneous entry secondary to interpretation by the dictation equipment. Nakia Cox Jun 17, 2017 16:57
[2017-06-17 16:59] VITALS: BP 116/73
[2017-06-17] MEDS ORDERED: ATIVAN1 MG ORAL (16:59)
[2017-06-17] MEDS ORDERED: TYLENOL EXTRA500 MG ORAL (16:59)
--- NOTE | 2017-06-18 19:00 | Cardiology Report ---
APPROVED REPORT EKG Measurement Heart [id number] Normal sinus rhythm with sinus arrhythmia Moderate voltage criteria for LVH, may be normal variant Nonspecific T wave abnormality Abnormal ECG
== END 2017-06-17 17:10 | disposition home or self-care (01) ==
LOC: EMR 15:57
DX: R07.89 Other chest pain (principal)
CPT/HCPCS: 36415; 71046; 71275; 80053; 81025; 85025; 85610; 85730; 93005; 99284; Q9967